=== PATIENT | female | born 1990 | race Caucasian/White ===

== ENCOUNTER → 2017-03-31 | Outpatient (CLI) | payer OTHER ==
[2017-03-31 09:20] LABS: FASTING URINE GLUCOSE NEGATIVE
[2017-03-31 11:02] LABS: 1 HR URINE GLUCOSE 2+ mg/ml
[2017-03-31 11:35] LABS: 2 HR URINE GLUCOSE 3+ mg/ml
[2017-03-31 12:38] LABS: 3 HR URINE GLUCOSE 2+ mg/ml
== END ==
LOC: LAB 09:02
PROVIDERS: Nurse Practitioner Obstetrics & Gynecology
DX: Z34.00 Encounter for supervision of normal first pregnancy, unspecified trimester (principal)

== ENCOUNTER → 2017-04-25 | Outpatient (CLI) | payer OTHER | LOC: LAB 17:59 | DX: Z34.00 Encounter for supervision of normal first pregnancy, unspecified trimester (principal) ==